=== PATIENT | male | born 1970 | race African-American/Black ===

== ENCOUNTER 2019-03-08 16:47 | Emergency (ER) | payer SELFPAY ==
--- NOTE | 2019-03-08 16:54 | ED Physician Documentation ---
Chest Pain - HISTORIAN Historian: patient - HPI Stated Complaint: chest pain Chief Complaint: Chest Pain Additional Information: Patient presents to ED via EMS the right chest pain radiating down his right arm while ambulating to the bathroom after waking up from a nap. He states the pain is pressure like with a dullache, worse with inspiration and reproducible with chest wall compression. Patient rates his pain 5/10 with associated symptoms of diaphoresis. Presenting blood pressure is 173/117. Patient states he ran out of his blood pressure meds about a week ago. Patient reports a mild heart attack about a year ago, however, he did not get a stent or any other intervention. He reports he was started on blood pressure meds. He does smoke cigarettes. Patient got Aspirin x 4, nitro and hydralazine in EMS. Timing: sudden onset Duration: constant Last known Well Date: 03/08/19 Last Known Well Time: 16:30 Context: sleep Severity: moderate Quality: pressure, dull Chest Pain Radiation: arms (right) Chest Pain Signs/Symptoms: diaphoresis. denies: nausea, vomiting, dizziness Worsened By: deep breaths Relieved By: nothing - ROS CONST: none MS/LYMPH: none GI/: none EYES/ENT: none SKIN/ENDO: none NEURO/PSYCH: none - PAST HX PA risk factors: hypertension, AMI DVT/PE Risk Factors: none TAD/AAA risk factors: none GI disease: none Lung disease: none Surgeries/Procedures: none Allergies/Adverse Reactions: Allergies Allergy/AdvReac Type Severity Reaction Status Date / Time No Known Allergies Allergy Verified 03/08/19 17:29 Home Medications: Ambulatory Orders Medication Instructions Recorded Lisinopril 20 mg PO BID 03/08/19 - SOCIAL HX Smoking History: cigarettes, greater than 1 pack/day Alcohol Use: none Drug Use: none - FAMILY HX Family HX: none - REVIEWED ASSESSMENTS Nursing Assessment Reviewed: Yes Vitals Reviewed: Yes Progress - Progress Progress: 1816 Discussed elevated troponin with patient and transfer. Patient requests [facility]. Patient reports coughing and copious amount of clear/white sputum 1832 Discussed with [facility] for transfer. 1857 Discussed with [place], Dr. Chinchilla accepts the patient. Recommends potassium replacement and nitropaste or beta hiral. 0 Potassium 20 Meq PO x 1 and Nitropaste ordered. - EKG/XRAY/CT EKG: NSR Comments: 1633 Sinus rhythm nonspecific T wave abnormality V2-V3 ED Results Lab/Radiology - Radiology Radiology Impressions: Report Submission Date: Mar 08, 2019 5:17:38 PM CDT Patient Study Name: MARIYA JEFFERY Date: Mar 08, 2019 4:46:03 PM CDT Modality Type: DX Gender: M Description: CHEST 1VIEW : 68 Institution: [facility] Physician: MAINOR GAITAN Ap portable upright radiographs of the chest Clinical history: Chest pain Technique: anterior /posterior portable upright Findings: The lung sutton are clear. The heart is not enlarged. The aorta is tortuous. The bony thorax is unremarkable. No pneumothorax or pleural effusion is seen. Impression: No acute pulmonary disease Electronically signed on Mar 08, 2019 5:17:38 PM CDT by: Moncho Han Chest Pain Physical Exam - EXAM General Appearance: no acute distress, alert EENT: LUZ Respiratory: no resp. distress, chest non-tender, nml breath sounds CVS: reg. rate & rhythm, no murmur Abdomen: soft, normal bowel sounds, non-tender Skin: warm/dry Extremities: non-tender, edema (trace lower extremity edema bilaterally) Neuro: oriented X3, mood/affect nml Discharge Clincal Impression: Elevated troponin I level Chest pain Qualifiers: Chest pain type: precordial pain Qualified Code(s): R07.2 - Precordial pain Referrals: Primary Doctor,No [Primary Care Provider] - 2 Days Condition: Stable Disposition: 02 XFER SHT-TRM HOSP Decision to Admit: NO Date of Decison to Admit: 03/08/19 Decision Time: 19:05
[2019-03-08] MEDS: hydrALAZINE HCL 20 MG/1 ML IVP ONE (17:10)
--- NOTE | 2019-03-08 17:24 | Diagnostic Imaging Report ---
MAINOR GAITAN [facility] [id number] [facility].[address] [id number] Report Submission Date: Mar 08, 2019 5:17:38 PM CDT Patient Study Name: MARIYA JEFFERY Date: Mar 08, 2019 4:46:03 PM CDT Modality Type: DX Gender: M Description: CHEST 1VIEW : 68 Institution: [facility] Physician: MAINOR GAITAN Ap portable upright radiographs of the chest Clinical history: Chest pain Technique: anterior /posterior portable upright Findings: The lung sutton are clear. The heart is not enlarged. The aorta is tortuous. The bony thorax is unremarkable. No pneumothorax or pleural effusion is seen. Impression: No acute pulmonary disease Electronically signed on Mar 08, 2019 5:17:38 PM CDT by: Moncho GOINS
[2019-03-08 17:41] LABS: SEGMENTED NEUTROPHILS % 65 % (39-79)
[2019-03-08] MEDS ORDERED: IPRATROPIUM/ALBUTEROL SULFATE 3 ML AMPUL.NEB NEB ONE (17:51)
[2019-03-08 17:52] LABS: eGFR (Non-African) 59
[2019-03-08] MEDS: LEVALBUTEROL NEB 1.25 MG/3 ML VIAL.NEB NEB ONE (18:35)
[2019-03-08] MEDS: IPRATROPIUM BROMIDE 0.5 MG/2.5 ML AMPUL.NEB NEB ONE (18:36)
[2019-03-08] MEDS: LISINOPRIL 5 MG TABLET PO ONE (18:37)
[2019-03-08] MEDS: POTASSIUM CHLORIDE 20 MEQ TABLET.ER PO ONE (19:07)
[2019-03-08] MEDS: NITROGLYCERIN 2% 1GM OINT PACKET...G. TD ONE (19:07)
[2019-03-08] MEDS: MORPHINE SULFATE 4 MG/ML VIAL IV ONE (19:12)
[2019-03-08 19:29] VITALS: BP 163/119
== END 2019-03-08 19:20 | disposition short-term general hospital (02) ==
LOC: ED 16:47
DX: R07.2 Precordial pain (principal); R79.89 Other specified abnormal findings of blood chemistry
CPT/HCPCS: 71045; 80053; 83880; 84484; 85025; 93005; 94640; 96374; 99284; A9270; J0360; J7614; 96361